=== PATIENT | female | born 1965 | race Caucasian/White ===

== ENCOUNTER 2025-01-15 23:35 | Emergency (ER) | payer BC, OTHER ==
[~2025-01-15] VITALS: Ht 165.1 cm; Wt 82.2 kg
[2025-01-16] VITALS: BP 147/65; PULSE 90; RESP 20; TEMP 97.8; O2SAT 95
== END 2025-01-16 04:04 | disposition left against medical advice (07) ==
LOC: ER 23:35
DX: R21 Rash and other nonspecific skin eruption (principal); Z53.21 Procedure and treatment not carried out due to patient leaving prior to being seen by health care provider